=== PATIENT | male | born 2000 | race Caucasian/White ===

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

== ENCOUNTER 2020-03-10 22:08 | Emergency (ER) | payer MEDICAID ==
[~2020-03-10] VITALS: Ht 172.7 cm; Wt 61.2 kg
[2020-03-10 22:08] VITALS: BP_SYST 149
[2020-03-10 22:29] LABS: BILIRUBIN,URINE NEGATIVE (NEGATIVE); BLOOD, URINE NEGATIVE (NEGATIVE); CLARITY/URINE CLEAR (CLEAR); COLOR,URINE YELLOW (YELLOW); GLUCOSE,URINE NEGATIVE (NEGATIVE); KETONES,URINE NEGATIVE (NEGATIVE); LEUKOCYTE ESTERASE ,URINE NEGATIVE (NEGATIVE); NITRITE, URINE NEGATIVE (NEGATIVE); PROTEIN URINE NEGATIVE (NEGATIVE); UROBILINOGEN,URINE 0.2 (0.2-1.0)
[2020-03-10 22:30] LABS: BASOPHILS % (AUTO) 0.4 % (0.0-2.0); EOSINOPHILS # (AUTO) 0.1 K/uL (0.0-0.4); EOSINOPHILS % (AUTO) 0.6 % (0.0-4.0); HEMATOCRIT 48.7 % (36-54); HEMOGLOBIN 16.1 g/dL (14.0-18.0); LYMPHOCYTES # (AUTO) 4.1 K/uL (1.0-5.5); MEAN CORPUSCULAR HEMOGLOBIN 30 pg (27-31); MEAN CORPUSCULAR HGB CONC 33 % (32-36); MEAN CORPUSCULAR VOLUME 92 fL (79.0-98.0); MONOCYTES # (AUTO) 0.8 K/uL (0.0-1.0); MONOCYTES % (AUTO) 7.3 % (1.7-9.3); NEUTROPHILS # (AUTO) 6.3 K/uL (1.8-7.7); NEUTROPHILS % (AUTO) 55.7 % (40.0-70.0); PLATELET COUNT (AUTO) 262 K/uL (130-430); RED CELL DISTRIBUTION WIDTH 13.6 % (9.0-15.0); WHITE BLOOD COUNT (AUTO) 11.3 K/uL (4.5-11.0)
[2020-03-10] MEDS ORDERED: LORazepam 2 MG/ML VIAL ONE (22:33)
[2020-03-10 23:04] LABS: CALCIUM 9.2 mg/dL (8.4-11.0); CREATININE 0.94 mg/dL (0.55-1.30); POTASSIUM 3.7 mmol/L (3.5-5.1)
[2020-03-10 23:09] LABS: ALBUMIN 4.1 g/dL (3.4-4.8); TOTAL BILIRUBIN 0.3 mg/dL (0.0-1.0)
[2020-03-10 23:16] LABS: BARBITURATE, URINE NEGATIVE (NEG <=200)
[2020-03-10 23:17] LABS: BENZODIAZEPINE, URINE NEGATIVE (NEG <=150); CANNABINOID, URINE POSITIVE (NEG <=50); COCAINE, URINE NEGATIVE (NEG <=150); METHAMPHETAMINES SCREEN,URINE NEGATIVE (NEG <=500); OPIATE, URINE NEGATIVE (NEG <=100); PHENCYCLIDINE SCREEN,URINE NEGATIVE (NEG <=25); UR TRICYCLIC ANTIDEPRESSANTS NEGATIVE (NEG <=300); URINE AMPHETAMINE NEGATIVE (NEG <=500); URINE METHADONE NEGATIVE (NEG <=200); URINE OXYCODONE SCREEN NEGATIVE (NEG <=100); URINE PROPOXYPHENE SCREEN NEGATIVE (NEG <=300)
[2020-03-11 00:55] VITALS: BP_SYST 128
[2020-03-11] MEDS ORDERED: LORazepam 2 MG/ML VIAL IVP ONE (08:30)
== END 2020-03-11 00:15 | disposition home or self-care (01) ==
LOC: SED 22:08
DX: R56.9 Unspecified convulsions (principal)
CPT/HCPCS: 36415; 70450; 71045; 80053; 80307; 81003; 85025; 96374; 99285; J2060

== ENCOUNTER 2021-01-28 21:33 | Emergency (ER) | payer OTHER, MEDICAID ==
[~2021-01-28] VITALS: Ht 172.7 cm; Wt 63.5 kg
[2021-01-28 21:35] VITALS: BP_SYST 126
[2021-01-28] MEDS ORDERED: IBUP-1969 PO (22:52)
[2021-01-28 23:04] VITALS: BP_SYST 126
== END 2021-01-28 23:04 | disposition home or self-care (01) ==
LOC: SED 21:33
DX: S93.601A Unspecified sprain of right foot, initial encounter (principal); W22.8XXA Striking against or struck by other objects, initial encounter; Y93.89 Activity, other specified; Y92.89 Other specified places as the place of occurrence of the external cause; Y99.8 Other external cause status
CPT/HCPCS: 99283

== ENCOUNTER 2021-06-22 10:39 | Emergency (ER) | payer MEDICAID, OTHER ==
[~2021-06-22] VITALS: Ht 177.8 cm; Wt 61.2 kg
[~2021-06-22 10:39] MED LIST: IBUP-1969 PO
--- NOTE | 2021-06-22 10:42 | NUR ---
Triaged and placed in room 1 for evaluation. Jonathanrbraden in lowest position with side rails up and seizure pads in place.
[2021-06-22 10:51] VITALS: BP_SYST 151
--- NOTE | 2021-06-22 10:55 | NUR ---
Patient awake, alert and oriented to person, place, time and situation. Reports back pain 5/10 and "seizures every day for the last week." NKDA. PMH depression, anxiety, PTSD. VSS. Angel continue to monitor.
--- NOTE | 2021-06-22 11:15 | NUR ---
Dr Fraser at bedside to evaluate patient
[2021-06-22 11:38] LABS: BASOPHILS % (AUTO) 0.4 % (0.0-2.0); EOSINOPHILS % (AUTO) 0.3 % (0.0-4.0); HEMATOCRIT 43.8 % (36-54); HEMOGLOBIN 15.2 g/dL (14.0-18.0); LYMPHOCYTES # (AUTO) 1.8 K/uL (1.0-5.5); LYMPHOCYTES % (AUTO) 20.5 % (20.5-51.5); MEAN CORPUSCULAR HEMOGLOBIN 31 pg (27-31); MEAN CORPUSCULAR HGB CONC 35 % (32-36); MEAN CORPUSCULAR VOLUME 89 fL (79.0-98.0); MONOCYTES # (AUTO) 0.5 K/uL (0.0-1.0); MONOCYTES % (AUTO) 5.5 % (1.7-9.3); NEUTROPHILS # (AUTO) 6.3 K/uL (1.8-7.7); NEUTROPHILS % (AUTO) 73.3 % (40.0-70.0); PLATELET COUNT (AUTO) 205 K/uL (130-430); RED BLOOD CELL COUNT(AUTO) 4.95 MIL/uL (4.2-6.2); RED CELL DISTRIBUTION WIDTH 13.5 % (9.0-15.0); WHITE BLOOD COUNT (AUTO) 8.5 K/uL (4.8-10.8)
[2021-06-22 11:46] LABS: CREATININE 0.91 mg/dL (0.55-1.30); POTASSIUM 3.8 mmol/L (3.5-5.1)
[2021-06-22 11:52] LABS: ALBUMIN 4.6 g/dL (3.4-4.8); TOTAL BILIRUBIN 0.4 mg/dL (0.0-1.0)
--- NOTE | 2021-06-22 13:02 | NUR ---
Patient given written and verbal discharge instructions and verbalizes understanding. ER MD discussed with patient the results and treatment provided. Patient in stable condition. ID arm band removed. IV catheter removed intact and dressing applied, no active bleeding. Patient educated on pain management and to follow up with PMD. Pain Scale 5/10. Opportunity for questions provided and answered.
[2021-06-22 13:04] VITALS: BP_SYST 146
== END 2021-06-22 13:04 | disposition home or self-care (01) ==
LOC: SED 12:26
DX: F41.9 Anxiety disorder, unspecified (principal); R56.9 Unspecified convulsions; S20.229A Contusion of unspecified back wall of thorax, initial encounter; X58.XXXA Exposure to other specified factors, initial encounter; Y93.89 Activity, other specified; Y92.89 Other specified places as the place of occurrence of the external cause; Y99.8 Other external cause status
CPT/HCPCS: 36415; 80053; 85025; 99283